=== PATIENT | male | born 1960 | race American Indian/Alaskan Native ===

== ENCOUNTER 2018-02-25 11:35 | Inpatient (IN) | payer MEDICARE, OTHER ==
--- NOTE | 2018-02-25 11:48 | Emergency Department Report ---
HPI - General Time Seen by Provider: 02/25/18 11:39 - HPI HPI: Charge nurse triage/ The patient is a 57-year-old male presenting with chief complaint left-sided weakness. The patient states he went to sleep last night between 18:00-19:00 in his usual state of health. The patient states he awakened this shortly after midnight and noticed he was unable to walk because he is unable to move his left upper extremity or left lower extremity. Patient denies numbness or dysarthria. Location: [See above] Duration: [See above] Quality: Weakness Severity: Severe Modifying factors: [see above] Context: [see above] Mode of transportation: [not driving] ED Review of Systems ROS: Stated complaint: POSS CVA Other details as noted in HPI Physical Exam - Physical Exam Physical Exam: GENERAL: The patient is well-developed well-nourished male lying on stretcher not appearing to be in acute distress. [] HEENT: Normocephalic. Atraumatic. Extraocular motions are intact. Patient has moist mucous membranes. NECK: Supple. Trachea midline CHEST/LUNGS: Clear to auscultation. There is no respiratory distress noted. HEART/CARDIOVASCULAR: Regular. There is no tachycardia. There is no gallop rub or murmur. ABDOMEN: Abdomen is soft, nontender. Patient has normal bowel sounds. There is no abdominal distention. SKIN: There is no rash. There is no edema. There is no diaphoresis. NEURO: The patient is awake, alert, and oriented. The patient is cooperative. Cranial nerves II through XII grossly intact with exception of cranial nerve #7 on the left. The patient has an asymmetric smile with drooping on the left. Patient is unable to raise left upper extremity or left lower extremity off the stretcher. [0/5+, right machine design engineer 5+/5+. Normal sensation throughout. The patient has normal speech MUSCULOSKELETAL: There is no evidence of acute injury. NIHSS= 7 LOC a. Alert= 0 Not alert but arousable to minor stimuli=1 Not alert requires repeated or strong stimuli to move= 2 Responds only reflex motor or unresponsive=3 b. asks month and age answers both correctly= 0 answers one correctly= 1 answers neither correctly= 2 Best Gaze normal= 0 abnormal in one or both but forced deviation or total paresis absent= 1 forced deviation or total gaze paresis= 2 Visual no visual loss= 0 partial hemianopia= 1 complete hemianopia= 2 bilateral hemianopia= 3 Facial Palsy normal= 0 minor paralysis= 1 (+)partial paralysis= 2 complete paralysis= 3 Motor Arm no drift= 0 drift before 10 secs but doesnt hit bed= 1 (+)some effort against gravity= 2 no effort against gravity= 3 no movement= 4 Motor leg no drift= 0 drift before 5 secs but doesnt hit bed= 1 drifts to bed before 5 secs= 2 (+)no effort against gravity= 3 no movement= 4 Limb ataxia absent=0 present in one limb= 1 present in two limbs= 2 Sensory normal= 0 mild sensory loss= 1 severe (unaware of being touched)= 2 Best language mild/some loss of fluency= 1 severe= 2 mute= 3 Dysarthria normal= 0 slurs some words= 1 severe/unintelligible= 2 Extinction and Inattention no abnormality= 0 visual, tactile, auditory or personal inattention= 1 profound (doesnt recognize own hand or orients to only one side= 2 ED Course - Reevaluation(s) Reevaluation #1: 02/25/18 12:45 Patient has improved dramatically and is able to move both left upper and lower extremity. Cranial nerves II through XII grossly intact, no drift. Left machine design engineer 4 +/5, right machine design engineer 5+/5, normal sensation throughout. Patient is able to hold each leg at 30 for 5 seconds count NIHSS= 1 LOC a. Alert= 0 Not alert but arousable to minor stimuli=1 Not alert requires repeated or strong stimuli to move= 2 Responds only reflex motor or unresponsive=3 b. asks month and age answers both correctly= 0 answers one correctly= 1 answers neither correctly= 2 Best Gaze normal= 0 abnormal in one or both but forced deviation or total paresis absent= 1 forced deviation or total gaze paresis= 2 Visual no visual loss= 0 partial hemianopia= 1 complete hemianopia= 2 bilateral hemianopia= 3 Facial Palsy normal= 0 minor paralysis= 1 partial paralysis= 2 complete paralysis= 3 Motor Arm no drift= 0 drift before 10 secs but doesnt hit bed= 1 some effort against gravity= 2 no effort against gravity= 3 no movement= 4 Motor leg no drift= 0 drift before 5 secs but doesnt hit bed= 1 drifts to bed before 5 secs= 2 no effort against gravity= 3 no movement= 4 Limb ataxia absent=0 present in one limb= 1 present in two limbs= 2 Sensory normal= 0 mild sensory loss= 1 severe (unaware of being touched)= 2 Best language mild/some loss of fluency= 1 severe= 2 mute= 3 Dysarthria normal= 0 slurs some words= 1 severe/unintelligible= 2 Extinction and Inattention no abnormality= 0 visual, tactile, auditory or personal inattention= 1 profound (doesnt recognize own hand or orients to only one side= 2 ED Medical Decision Making - Lab Data Result diagrams: 02/25/18 11:50 02/25/18 11:50 Laboratory Tests 02/25/18 02/25/18 02/25/18 11:50 11:50 11:50 WBC 6.6 RBC 4.85 Hgb 14.4 Hct 43.8 MCV 90 MCH 30 MCHC 33 RDW 15.7 H Plt Count 149 Lymph % (Auto) 18.1 [place] % (Auto) 10.8 H Eos % (Auto) 0.4 Baso % (Auto) 0.4 Lymph # 1.2 [place] # 0.7 Eos # 0.0 Baso # 0.0 Seg Neutrophils % 70.3 H Seg Neutrophils # 4.7 PT 12.6 INR 0.90 APTT 28.1 Thrombin Time 16.4 Sodium 138 Potassium 2.7 L* Chloride 93.2 L Carbon Dioxide 27 Anion Gap 21 BUN 12 Creatinine 0.8 Estimated GFR > 60 BUN/Creatinine Ratio 15 Glucose 86 Calcium 9.4 - EKG Data -: EKG Interpreted by Me EKG shows normal: sinus rhythm Rate: normal - EKG Data When compared to previous EKG there are: previous EKG unavailable Interpretation: nonspecific ST-T wave tripp - Radiology Data Radiology results: report reviewed (CT head), image reviewed (CT head) CT head (discussed with radiologist)-no acute findings. Old lacunar infarcts - Differential Diagnosis CVA Critical care attestation.: If time is entered above; I have spent that time in minutes in the direct care of this critically ill patient, excluding procedure time. ED Disposition Clinical Impression: CVA (cerebral vascular accident), Hypokalemia Disposition: -09 OP ADMIT IP TO THIS HOSP Is pt being admited?: Yes Does the pt Need Aspirin: Yes Condition: Stable Referrals: PRIMARY CARE,MD [Primary Care Provider] - 3-5 Days Time of Disposition: 12:47 (hospitals notified (Dr Montes))
--- NOTE | 2018-02-25 11:57 | Cat Scan Report ---
CT HEAD WITHOUT CONTRAST: 02/25/18 11:37:00 CLINICAL: 98N-STROKE ALERT. Left-sided weakness. TECHNIQUE: 2.5-mm noncontrast scans. COMPARISON:None FINDINGS: The ventricles and sulci are large for age.Several bilateral basal ganglia and thalamic chronic lacunar infarcts. The largest is a right thalamic hypodensity measuring 1.6 x 0.8 cm. A right basal ganglia infarct at the junction of the anterior and posterior lambs of the internal capsule measures 1.0 x 0.7 cm. A right frontal white matter lacunar infarct measures 1.1 x 0.8 cm. Moderate bilateral periventricular white matter hypodensities No mass or mass effect. No hemorrhage, edema or extra-axial collection. The sinuses are clear. Normal orbits. The calvarium and skull base are intact. There appears to be a linear high density scar in the left posterior parietal and occipital scalp and a similar smaller scar in the right parietal scalp at the convexity. IMPRESSION: Multiple bilateral basal ganglia and bilateral thalamic chronic lacunar infarcts. A right frontal lobe white matter chronic lacunar infarct. No evidence of acute/subacute infarct or hemorrhage. Verbal report was given to Dr. Rowe in the emergency department on 02/25/18 at 11:53.. 98N-STROKE ALERT
[2018-02-25] MEDS ORDERED: ASPIRIN PO ONE (11:58)
[2018-02-25 12:00] LABS: Basophils % (Auto) 0.4 % (0.0-1.8); Eosinophils % (Auto) 0.4 % (0.0-4.3); Hematocrit 43.8 % (35.5-45.6); Hemoglobin 14.4 gm/dl (11.8-15.2); Lymphocytes # (Auto) 1.2 K/mm3 (1.2-5.4); Lymphocytes % (Auto) 18.1 % (13.4-35.0); Mean Corpuscular HGB Conc 33 % (32-34); Mean Corpuscular Hemoglobin 30 pg (28-32); Mean Corpuscular Volume 90 fl (84-94); Monocytes # (Auto) 0.7 K/mm3 (0.0-0.8); Monocytes % (Auto) 10.8 % (0.0-7.3); Platelet Count 149 K/mm3 (140-440); Red Blood Count 4.85 M/mm3 (3.65-5.03); Red Cell Distribution Width 15.7 % (13.2-15.2)
[2018-02-25 12:10] LABS: INR 0.9 (0.87-1.13)
[2018-02-25 12:11] LABS: Partial Thromboplastin Time 28.1 Sec. (24.2-36.6); Thrombin Time 16.4 Sec. (15.1-19.6)
[2018-02-25 12:34] LABS: BUN/Creatinine Ratio 15; Blood Urea Nitrogen 12 mg/dL (9-20); Calcium 9.4 mg/dL (8.4-10.2); Hemolysis Index 6
[2018-02-25] MEDS ORDERED: K-DUR PO ONE (12:44)
--- NOTE | 2018-02-25 13:09 | History and Physical Report ---
History of Present Illness Chief complaint: Im weak History of present illness: 57 YO Male with NO PMH, without PCP presents to ED for evaluation. Pt is confused and unable to provide detailed history. Pt was last reported well at 1800 hours. Pt swoke shortly after midnight was was unable to walk and move his left arm and left leg. EMS was later notified, and upon arrival the patient was found to have evidence of CVA. Pt transported to [facility] for further care and evalualtion. Pt seen and evaluated in ED and found to have evidence of CVA as well as Encephalopathy. Pt unable to provide further history. Pt admitted to telemetry and initiated on CVA protocol. Past History Past Medical History: No medical history, other (reviewed) Past Surgical History: No surgical history, Other (reviewed) Social history: single, Lives alone. denies: smoking, alcohol abuse, prescription drug abuse Family history: hypertension Medications and Allergies Allergies Allergy/AdvReac Type Severity Reaction Status Date / Time No Known Allergies Allergy Verified 02/25/18 11:47 Review of Systems ROS unobtainable: due to mental status Exam - Constitutional General appearance: Present: mild distress - EENT Eyes: Present: PERRL ENT: hearing intact, clear oral mucosa - Neck Neck: Present: supple, normal ROM - Respiratory Respiratory effort: normal Respiratory: bilateral: CTA - Cardiovascular Heart Sounds: Present: S1 & S2. Absent: rub, click - Extremities Extremities: pulses symmetrical, No edema Peripheral Pulses: within normal limits - Abdominal General gastrointestinal: Present: soft, non-tender, non-distended, normal bowel sounds Male genitourinary: Present: normal - Integumentary Integumentary: Present: clear, warm, dry - Musculoskeletal Musculoskeletal: left sided weakness - Psychiatric Psychiatric: intact judgment & insight, no memory intact, agitated - Neurologic Neurologic: focal deficits, moves all extremities, no gait normal Results - Labs CBC & Chem 7: 02/25/18 11:50 02/25/18 11:50 Labs: Abnormal lab results 02/25/18 02/25/18 Range/Units 11:50 11:50 RDW 15.7 H (13.2-15.2) % [place] % (Auto) 10.8 H (0.0-7.3) % Seg Neutrophils % 70.3 H (40.0-70.0) % Potassium 2.7 L* (3.6-5.0) mmol/L Chloride 93.2 L (98-107) mmol/L Assessment and Plan - Patient Problems (1) CVA (cerebral vascular accident) Current Visit: Yes Status: Acute Qualifiers: Precerebral and cerebral artery: middle cerebral artery Laterality of affected vessel: left Plan to address problem: Stroke Protocol: CT head, MRI Brain, MRA Brain, Echo, Carotid doppler, DAPT, Statin therapy, EEG, Neuro checks, seizure precautions. (2) Encephalopathy Current Visit: Yes Status: Acute Plan to address problem: CT head, neuro checks, seizure precautions. (3) Accelerated hypertension Current Visit: Yes Status: Acute Plan to address problem: permissive hypertension overnight, supportive care. (4) DVT prophylaxis Current Visit: Yes Status: Acute Plan to address problem: SCD to BLE while in bed.
[2018-02-25] MEDS ORDERED: DULCOLAX PR PRN (13:40)
[2018-02-25] MEDS ORDERED: ZOFRAN IV PRN (13:40)
[2018-02-25] MEDS ORDERED: SODIUM CHLORIDE FLUSH SYRINGE 10 ML IV PRN (13:40)
[2018-02-25] MEDS ORDERED: MILK OF MAGNESIA PO PRN (13:40)
[2018-02-25] MEDS ORDERED: PHENERGAN PR PRN (13:40)
[2018-02-25] MEDS ORDERED: REGLAN PO PRN (13:40)
[2018-02-25] MEDS ORDERED: PROVENTIL IH PRN (13:40)
[2018-02-25] MEDS: PLAVIX PO SCH (14:50)
[2018-02-25] MEDS ORDERED: PLAVIX ONE (14:53)
--- NOTE | 2018-02-25 16:37 | Magnetic Resonance Report ---
FINAL REPORT EXAM: MR MRA/MRV HEAD WO CON HISTORY: stroke TECHNIQUE: MRA of the brain was performed without intravenous contrast. Rotating MIPS were included. PRIORS: None. FINDINGS: No evidence of intracranial aneurysm, vessel occlusion or stenosis. The right posterior communicating artery is either very small or absent. The remainder of the [place] anatomy is normal. The anterior cerebral, posterior cerebral and middle cerebral arteries are patent. The intracranial internal carotid arteries are patent. The vertebral and basilar arteries are patent. IMPRESSION: Normal MRA of the brain.
--- NOTE | 2018-02-25 16:41 | Magnetic Resonance Report ---
FINAL REPORT EXAM: MR BRAIN WO CON HISTORY: stroke TECHNIQUE: Multiplanar, multisequence MRI of the brain was performed without intravenous contrast. PRIORS: None. FINDINGS: There is a focus of restricted diffusion within the right aspect of the haroldo. No intracranial mass or mass effect. No intracranial hemorrhage. The intracranial flow voids are patent. The ventricles are normal in size, shape and position. The basilar cisterns are patent. Multifocal confluent areas of T2 FLAIR hyperintensity are seen in the periventricular and subcortical white matter. Some of the lesions demonstrate central cavitation. Mild mucosal thickening of the paranasal sinuses is likely congestive or inflammatory. The orbits are intact. Probable prior left posterior scalp laceration. IMPRESSION: 1. Recent right pontine infarct. 2. White matter findings are nonspecific in a patient this age although may be related to a knee violating or inflammatory process versus chronic microvascular ischemic disease. 3. Paranasal sinus mucosal thickening is likely congestive or inflammatory. Findings were discussed with ARETHA Braden at 1:31 p.m. PST on 02/25/2018.
[2018-02-25] MEDS: TYLENOL PO PRN ×2 (17:35→21:21)
[2018-02-25] MEDS ORDERED: PRAVACHOL PO SCH (22:00)
[2018-02-26 05:37] LABS: Chol/HDL Ratio 2.7 %
[2018-02-26] MEDS ORDERED: PRAVACHOL PO SCH ×2 (11:42→22:00)
[2018-02-26] MEDS ORDERED: K-DUR PO NR ×2 (11:43→15:00)
--- NOTE | 2018-02-26 11:44 | Progress Note ---
Assessment and Plan Assessment and plan: Acute CVA. MRI reveals recent right pontine infarct. MRA and carotid Doppler negative. Consider neurology consultation. Continue PT/OT. Continue secondary prevention with anti-lipids and aspirin/plavix. Follow-up echocardiogram and EEG. Encephalopathy. Etiology secondary to #1. Resolved. Hypokalemia. Replete potassium. Accelerated hypertension. Continue hypertensive medications. DVT prophylaxis. Lovenox daily. History Interval history: No new issues overnight. Hospitalist Physical - Constitutional Vitals: Temp Pulse Resp BP Pulse Ox 98.5 F 71 16 145/90 94 02/26/18 07:49 02/26/18 07:49 02/26/18 07:49 02/26/18 07:49 02/26/18 07:49 General appearance: Present: no acute distress - EENT Eyes: Present: PERRL, EOM intact ENT: hearing intact, clear oral mucosa, dentition normal - Neck Neck: Present: supple, normal ROM - Respiratory Respiratory effort: normal Respiratory: bilateral: CTA - Cardiovascular Rhythm: regular Heart Sounds: Present: S1 & S2. Absent: gallop, rub - Extremities Extremities: no ischemia, No edema, Full ROM - Abdominal General gastrointestinal: soft, non-tender, non-distended, normal bowel sounds - Integumentary Integumentary: Present: clear, warm, dry - Neurologic Neurologic: CNII-XII intact, moves all extremities Results - Labs CBC & Chem 7: 02/25/18 11:50 02/25/18 11:50 Labs: Laboratory Last Values WBC 6.6 K/mm3 (4.5-11.0) 02/25/18 11:50 RBC 4.85 M/mm3 (3.65-5.03) 02/25/18 11:50 Hgb 14.4 gm/dl (11.8-15.2) 02/25/18 11:50 Hct 43.8 % (35.5-45.6) 02/25/18 11:50 MCV 90 fl (84-94) 02/25/18 11:50 MCH 30 pg (28-32) 02/25/18 11:50 MCHC 33 % (32-34) 02/25/18 11:50 RDW 15.7 % (13.2-15.2) H 02/25/18 11:50 Plt Count 149 K/mm3 (140-440) 02/25/18 11:50 Lymph % (Auto) 18.1 % (13.4-35.0) 02/25/18 11:50 [place] % (Auto) 10.8 % (0.0-7.3) H 02/25/18 11:50 Eos % (Auto) 0.4 % (0.0-4.3) 02/25/18 11:50 Baso % (Auto) 0.4 % (0.0-1.8) 02/25/18 11:50 Lymph # 1.2 K/mm3 (1.2-5.4) 02/25/18 11:50 [place] # 0.7 K/mm3 (0.0-0.8) 02/25/18 11:50 Eos # 0.0 K/mm3 (0.0-0.4) 02/25/18 11:50 Baso # 0.0 K/mm3 (0.0-0.1) 02/25/18 11:50 Seg Neutrophils % 70.3 % (40.0-70.0) H 02/25/18 11:50 Seg Neutrophils # 4.7 K/mm3 (1.8-7.7) 02/25/18 11:50 PT 12.6 Sec. (12.2-14.9) 02/25/18 11:50 INR 0.90 (0.87-1.13) 02/25/18 11:50 APTT 28.1 Sec. (24.2-36.6) 02/25/18 11:50 Thrombin Time 16.4 Sec. (15.1-19.6) 02/25/18 11:50 Sodium 138 mmol/L (137-145) 02/25/18 11:50 Potassium 2.7 mmol/L (3.6-5.0) L* 02/25/18 11:50 Chloride 93.2 mmol/L (98-107) L 02/25/18 11:50 Carbon Dioxide 27 mmol/L (22-30) 02/25/18 11:50 Anion Gap 21 mmol/L 02/25/18 11:50 BUN 12 mg/dL (9-20) 02/25/18 11:50 Creatinine 0.8 mg/dL (0.8-1.5) 02/25/18 11:50 Estimated GFR > 60 ml/min 02/25/18 11:50 BUN/Creatinine Ratio 15 % 02/25/18 11:50 Glucose 86 mg/dL (75-100) 02/25/18 11:50 POC Glucose 113 (70-105) H 02/26/18 07:33 Calcium 9.4 mg/dL (8.4-10.2) 02/25/18 11:50 Triglycerides 84 mg/dL (2-149) 02/26/18 04:28 Cholesterol 181 mg/dL (50-199) 02/26/18 04:28 LDL Cholesterol Direct 106 mg/dL (50-130) 02/26/18 04:28 HDL Cholesterol 67 mg/dL (40-59) H 02/26/18 04:28 Cholesterol/HDL Ratio 2.70 % 02/26/18 04:28
[2018-02-26] MEDS: PLAVIX PO SCH (12:30)
[2018-02-26] MEDS: TYLENOL PO PRN ×2 (15:08→23:36)
[2018-02-27] MEDS ORDERED: APRESOLINE IV PRN (04:21)
[2018-02-27] MEDS: PLAVIX PO SCH (09:26)
--- NOTE | 2018-02-27 09:45 | Progress Note ---
Assessment and Plan Assessment and plan: Acute CVA. Pt reports LUE weakness is worse. ? Evolving CVA. Neurology consultation. Consider rechecking CT head. Await neurology recommendations MRI reveals recent right pontine infarct. MRA and carotid Doppler negative. Continue PT/OT. Continue secondary prevention with anti-lipids and aspirin/ plavix. Follow-up echocardiogram and EEG. Accelerated HTN. Pt initially with permissive htn. We will now start labetalol BID. Encephalopathy. Etiology secondary to #1. Resolved. Hypokalemia. Replete potassium. Accelerated hypertension. Continue hypertensive medications. DVT prophylaxis. Lovenox daily. Disposition. Re-eval by physical therapy I d/w sister Mercedez Hauser ([phone]) updated plan of care and answered all questions History Interval history: Nurse and pt reports that Left upper extremity weakness appears to be worse today. Hospitalist Physical - Constitutional Vitals: Temp Pulse Resp BP Pulse Ox 97.5 F L 74 19 168/95 95 02/27/18 08:17 02/27/18 08:17 02/27/18 08:17 02/27/18 08:17 02/27/18 08:17 General appearance: Present: no acute distress - EENT Eyes: Present: PERRL, EOM intact ENT: hearing intact, clear oral mucosa, dentition normal - Neck Neck: Present: supple, normal ROM - Respiratory Respiratory effort: normal Respiratory: bilateral: CTA - Cardiovascular Rhythm: regular Heart Sounds: Present: S1 & S2. Absent: gallop, rub - Extremities Extremities: no ischemia, No edema, Full ROM - Abdominal General gastrointestinal: soft, non-tender, non-distended, normal bowel sounds - Integumentary Integumentary: Present: clear, warm, dry - Neurologic Neurologic: CNII-XII intact, moves all extremities Results - Labs CBC & Chem 7: 02/25/18 11:50 02/25/18 11:50 Labs: Laboratory Last Values WBC 6.6 K/mm3 (4.5-11.0) 02/25/18 11:50 RBC 4.85 M/mm3 (3.65-5.03) 02/25/18 11:50 Hgb 14.4 gm/dl (11.8-15.2) 02/25/18 11:50 Hct 43.8 % (35.5-45.6) 02/25/18 11:50 MCV 90 fl (84-94) 02/25/18 11:50 MCH 30 pg (28-32) 02/25/18 11:50 MCHC 33 % (32-34) 02/25/18 11:50 RDW 15.7 % (13.2-15.2) H 02/25/18 11:50 Plt Count 149 K/mm3 (140-440) 02/25/18 11:50 Lymph % (Auto) 18.1 % (13.4-35.0) 02/25/18 11:50 [place] % (Auto) 10.8 % (0.0-7.3) H 02/25/18 11:50 Eos % (Auto) 0.4 % (0.0-4.3) 02/25/18 11:50 Baso % (Auto) 0.4 % (0.0-1.8) 02/25/18 11:50 Lymph # 1.2 K/mm3 (1.2-5.4) 02/25/18 11:50 [place] # 0.7 K/mm3 (0.0-0.8) 02/25/18 11:50 Eos # 0.0 K/mm3 (0.0-0.4) 02/25/18 11:50 Baso # 0.0 K/mm3 (0.0-0.1) 02/25/18 11:50 Seg Neutrophils % 70.3 % (40.0-70.0) H 02/25/18 11:50 Seg Neutrophils # 4.7 K/mm3 (1.8-7.7) 02/25/18 11:50 PT 12.6 Sec. (12.2-14.9) 02/25/18 11:50 INR 0.90 (0.87-1.13) 02/25/18 11:50 APTT 28.1 Sec. (24.2-36.6) 02/25/18 11:50 Thrombin Time 16.4 Sec. (15.1-19.6) 02/25/18 11:50 Sodium 138 mmol/L (137-145) 02/25/18 11:50 Potassium 2.7 mmol/L (3.6-5.0) L* 02/25/18 11:50 Chloride 93.2 mmol/L (98-107) L 02/25/18 11:50 Carbon Dioxide 27 mmol/L (22-30) 02/25/18 11:50 Anion Gap 21 mmol/L 02/25/18 11:50 BUN 12 mg/dL (9-20) 02/25/18 11:50 Creatinine 0.8 mg/dL (0.8-1.5) 02/25/18 11:50 Estimated GFR > 60 ml/min 02/25/18 11:50 BUN/Creatinine Ratio 15 % 02/25/18 11:50 Glucose 86 mg/dL (75-100) 02/25/18 11:50 POC Glucose 113 (70-105) H 02/26/18 07:33 Calcium 9.4 mg/dL (8.4-10.2) 02/25/18 11:50 Triglycerides 84 mg/dL (2-149) 02/26/18 04:28 Cholesterol 181 mg/dL (50-199) 02/26/18 04:28 LDL Cholesterol Direct 106 mg/dL (50-130) 02/26/18 04:28 HDL Cholesterol 67 mg/dL (40-59) H 02/26/18 04:28 Cholesterol/HDL Ratio 2.70 % 02/26/18 04:28
--- NOTE | 2018-02-27 14:34 | Cat Scan Report ---
CT HEAD WITHOUT CONTRAST: HISTORY: Fall, left arm weakness worse. TECHNIQUE: Sequential CT images without contrast. FINDINGS: Compared to 02/25/18. Nonspecific chronic white matter changes are stable. Focal chronic infarcts in the right frontal white matter, genu of the right internal capsule, bilateral thalami, and bilateral haroldo appear unchanged since the previous exam. No new area of diminished attenuation is identified on noncontrast CT to suggest acute ischemia. No evidence for hemorrhage or extra-axial fluid collection. Ventricular size is within normal limits. The calvarium is intact. The visualized sinuses and mastoid air cells are clear. IMPRESSION: Chronic findings as described above which are unchanged since 02/25/18.
[2018-02-27] MEDS: TYLENOL PO PRN ×2 (15:51→22:47)
[2018-02-27] MEDS: NORMODYNE PO SCH (22:48)
--- NOTE | 2018-02-28 08:25 | Consultation ---
History of Present Illness Consult date: 02/28/18 History of present illness: spoke with the nurse while on rounds slightly increased weakness noted on the left side at present time suspect progression of stroke will assess the BP make further rec's plan to check imaging studies Past History Past Medical History: No medical history, other (reviewed) Past Surgical History: No surgical history, Other (reviewed) Social history: single, Lives alone. denies: smoking, alcohol abuse, prescription drug abuse Family history: hypertension Medications and Allergies Allergies Allergy/AdvReac Type Severity Reaction Status Date / Time No Known Allergies Allergy Verified 02/25/18 11:47 Home Medications Medication Instructions Recorded Confirmed Last Taken Type No Known Home Medications [No 02/26/18 02/26/18 Unknown History Reported Home Medications] Active Meds: Active Medications Acetaminophen (Tylenol) 650 mg PO Q4H PRN PRN Reason: Pain, Mild (1-3) Last Admin: 02/27/18 22:47 Dose: 650 mg Albuterol (Proventil) 2.5 mg IH Q3HRT PRN PRN Reason: Shortness Of Breath Atorvastatin Calcium (Lipitor) 40 mg PO QHS [facility] Last Admin: 02/27/18 22:48 Dose: 40 mg Bisacodyl (Dulcolax) 10 mg [place] QDAY PRN PRN Reason: Constipation Clopidogrel Bisulfate (Plavix) 75 mg PO QDAY [facility] Last Admin: 02/27/18 09:26 Dose: 75 mg Hydralazine HCl (Apresoline) 5 mg IV Q6H PRN PRN Reason: Blood Pressure Last Admin: 02/27/18 05:11 Dose: 5 mg Labetalol HCl (Normodyne) 200 mg PO BID [facility] Last Admin: 02/27/18 22:48 Dose: 200 mg Magnesium Hydroxide (Milk Of Magnesia) 30 ml PO Q4H PRN PRN Reason: Constipation Metoclopramide HCl (Reglan) 10 mg PO Q6H PRN PRN Reason: Nausea And Vomiting Ondansetron HCl (Zofran) 4 mg IV Q8H PRN PRN Reason: N/V unrelieved by Reglan Promethazine HCl (Phenergan) 25 mg [place] Q6H PRN PRN Reason: Nausea And Vomiting Sodium Chloride (Sodium Chloride Flush Syringe 10 Ml) 10 ml IV PRN PRN PRN Reason: LINE FLUSH Physical Examination - Vital Signs Vital Signs: Vital Signs Pulse Ox 96 02/25/18 11:50 - Level of Consciousness 1a. Level of Consciousness: alert - LOC Questions 1b. LOC Questions: answers correctly - LOC Command 1c. LOC Commands: performs tasks correctly - Best Gaze 2. Best Gaze: normal - Visual 3. Visual: no visual loss - Facial Palsy 4. Facial Palsy: normal symmetrical movement - Motor Arm 5b. Motor Arm Right: no drift - Motor Leg 6a. Motor Leg Left: drift - Limb Ataxia 7. Limb Ataxia: absent - Sensory 8. Sensory: normal - Best Language 9. Best Language: no aphasia - Dysarthria 10. Dysarthria: normal - Extinction and Inattention 11. Extinction/Inattention: no abnormality Results - Laboratory Findings CBC and BMP: 02/25/18 11:50 02/25/18 11:50 Abnormal Lab Findings: Abnormal Labs 02/25/18 02/25/18 02/26/18 11:50 11:50 04:28 RDW 15.7 H [place] % (Auto) 10.8 H Seg Neutrophils % 70.3 H Potassium 2.7 L* Chloride 93.2 L POC Glucose HDL Cholesterol 67 H 02/26/18 07:33 RDW [place] % (Auto) Seg Neutrophils % Potassium Chloride POC Glucose 113 H HDL Cholesterol
[2018-02-28 10:17] LABS: BUN/Creatinine Ratio 19; Blood Urea Nitrogen 13 mg/dL (9-20); Calcium 8.9 mg/dL (8.4-10.2); Hemolysis Index 2
[2018-02-28] MEDS: PLAVIX PO SCH (14:59)
[2018-02-28] MEDS: NORMODYNE PO SCH ×2 (14:59→21:31)
--- NOTE | 2018-02-28 18:23 | Progress Note ---
Assessment and Plan Assessment and plan: Mr. Kenyon is a 57 yo man without chronic medical issues who presented with left side paralysis, no tpa given because ?last known well time. * CT head w/o IMPRESSION: Multiple bilateral basal ganglia and bilateral thalamic chronic lacunar infarcts. A right frontal lobe white matter chronic lacunar infarct. No evidence of acute/subacute infarct or hemorrhage. * MRI brain w/o contrast IMPRESSION: 1. Recent right pontine infarct. 2. White matter findings are nonspecific in a patient this age although may be related to a knee violating or inflammatory process versus chronic microvascular ischemic disease. 3. Paranasal sinus mucosal thickening is likely congestive or inflammatory. * MRA brain w/o contrast reported as normal * 2D ECHO reported estimated EF 50%, moderate concentric hypertrophy, trace MR * Carotid dopplers prelim was unremarkable, <50% stenosis -Acute ischemic CVA. -Accelerated HTN with urgency. Pt initially with permissive htn. We will now start labetalol BID. -Acute Encephalopathy. Etiology secondary to #1. Resolved. -Hypokalemia. Replete potassium. -Accelerated hypertension. Continue hypertensive medications. -DVT prophylaxis. Lovenox daily. -Disposition. Re-eval by physical therapy History Interval history: Patient was seen and examined. Follow-up on current diagnosis. Overnight uneventful. Patient denies any chest pain, shortness breath, nausea/vomiting or severe headaches. Imaging, nursing note, chart, labs and old chart reviewed. Discussed with patient. Hospitalist Physical - Physical exam Narrative exam: GEN: WDWN, NAD, Awake, Alert, Orientated HEENT: NCAT, EOMI, PERRL, OP Clear NECK: supple, no adenopathy, no thyromegaly, no JVD CVS/HEART: RRR, normal S1S2, pulses present bilaterally CHEST/LUNGS: CTA B, Symmetrical chest expansion, good air entry bilaterally GI/Abdomen: soft, NTND, good bowel sounds, no guarding or rebound /Bladder: no suprapubic tenderness, no CVA or paraspinal tenderness EXT/Skin: no c/c/e, no obvious rash MSK: FROM x 3 Neuro: CN 2-12 grossly intact, no new focal deficits, left hemiparesis Psych: calm - Constitutional Vitals: Temp Pulse Resp BP Pulse Ox 98.0 F 63 18 180/85 98 02/28/18 16:31 02/28/18 16:31 02/28/18 16:31 02/28/18 16:31 02/28/18 16:31 General appearance: Present: no acute distress Results - Labs CBC & Chem 7: 03/01/18 05:07 03/01/18 05:07 Labs: Laboratory Last Values WBC 6.6 K/mm3 (4.5-11.0) 02/25/18 11:50 RBC 4.85 M/mm3 (3.65-5.03) 02/25/18 11:50 Hgb 14.4 gm/dl (11.8-15.2) 02/25/18 11:50 Hct 43.8 % (35.5-45.6) 02/25/18 11:50 MCV 90 fl (84-94) 02/25/18 11:50 MCH 30 pg (28-32) 02/25/18 11:50 MCHC 33 % (32-34) 02/25/18 11:50 RDW 15.7 % (13.2-15.2) H 02/25/18 11:50 Plt Count 149 K/mm3 (140-440) 02/25/18 11:50 Lymph % (Auto) 18.1 % (13.4-35.0) 02/25/18 11:50 Coffey % (Auto) 10.8 % (0.0-7.3) H 02/25/18 11:50 Eos % (Auto) 0.4 % (0.0-4.3) 02/25/18 11:50 Baso % (Auto) 0.4 % (0.0-1.8) 02/25/18 11:50 Lymph # 1.2 K/mm3 (1.2-5.4) 02/25/18 11:50 Coffey # 0.7 K/mm3 (0.0-0.8) 02/25/18 11:50 Eos # 0.0 K/mm3 (0.0-0.4) 02/25/18 11:50 Baso # 0.0 K/mm3 (0.0-0.1) 02/25/18 11:50 Seg Neutrophils % 70.3 % (40.0-70.0) H 02/25/18 11:50 Seg Neutrophils # 4.7 K/mm3 (1.8-7.7) 02/25/18 11:50 PT 12.6 Sec. (12.2-14.9) 02/25/18 11:50 INR 0.90 (0.87-1.13) 02/25/18 11:50 APTT 28.1 Sec. (24.2-36.6) 02/25/18 11:50 Thrombin Time 16.4 Sec. (15.1-19.6) 02/25/18 11:50 Sodium 140 mmol/L (137-145) 02/28/18 09:36 Potassium 3.5 mmol/L (3.6-5.0) L D 02/28/18 09:36 Chloride 99.8 mmol/L (98-107) 02/28/18 09:36 Carbon Dioxide 29 mmol/L (22-30) 02/28/18 09:36 Anion Gap 15 mmol/L 02/28/18 09:36 BUN 13 mg/dL (9-20) 02/28/18 09:36 Creatinine 0.7 mg/dL (0.8-1.5) L 02/28/18 09:36 Estimated GFR > 60 ml/min 02/28/18 09:36 BUN/Creatinine Ratio 19 % 02/28/18 09:36 Glucose 176 mg/dL (75-100) H 02/28/18 09:36 POC Glucose 113 (70-105) H 02/26/18 07:33 Calcium 8.9 mg/dL (8.4-10.2) 02/28/18 09:36 Triglycerides 84 mg/dL (2-149) 02/26/18 04:28 Cholesterol 181 mg/dL (50-199) 02/26/18 04:28 LDL Cholesterol Direct 106 mg/dL (50-130) 02/26/18 04:28 HDL Cholesterol 67 mg/dL (40-59) H 02/26/18 04:28 Cholesterol/HDL Ratio 2.70 % 02/26/18 04:28
[2018-02-28] MEDS ORDERED: K-DUR PO NR (18:30)
[2018-02-28] MEDS: TYLENOL PO PRN (19:59)
[2018-03-01 06:50] LABS: BUN/Creatinine Ratio 16; Blood Urea Nitrogen 13 mg/dL (9-20); Calcium 8.8 mg/dL (8.4-10.2); Hemolysis Index 4
[2018-03-01 07:41] LABS: Hematocrit 39.3 % (35.5-45.6); Hemoglobin 12.9 gm/dl (11.8-15.2); Mean Corpuscular HGB Conc 33 % (32-34); Mean Corpuscular Hemoglobin 30 pg (28-32); Mean Corpuscular Volume 91 fl (84-94); Red Blood Count 4.33 M/mm3 (3.65-5.03)
[2018-03-01 07:42] LABS: Mean Platelet Volume 9.6 fl (6-12); Platelet Count 183 K/mm3 (140-440); Red Cell Distribution Width 15.7 % (13.2-15.2)
[2018-03-01] MEDS: PLAVIX PO SCH (10:10)
[2018-03-01] MEDS: NORMODYNE PO SCH (10:10)
[2018-03-01 10:11] VITALS: BP 160/80
--- NOTE | 2018-03-01 10:49 | Progress Note ---
Subjective Date of service: 03/01/18 Interval history: see my prior note as relates to etiology of stroke recommend medical therapy for stroke risk reduction continue same management stroke related neuro status is stable may either go home for rehab or rehab center at [facility] Objective - Vital Sign Vital Signs - 12hr 02/28/18 03/01/18 03/01/18 23:47 05:10 07:43 Temperature 97.8 F 97.6 F 97.9 F Pulse Rate 51 L 54 L 47 L Respiratory 18 18 20 Rate Blood Pressure 155/80 165/81 181/94 O2 Sat by Pulse 96 100 97 Oximetry 03/01/18 10:10 Temperature Pulse Rate 56 L Respiratory Rate Blood Pressure 160/80 O2 Sat by Pulse Oximetry - Laboratory Findings CBC and BMP: 03/01/18 05:07 03/01/18 05:07 Abnormal Lab Findings: Abnormal Labs 02/25/18 02/25/18 02/26/18 11:50 11:50 04:28 RDW 15.7 H Cooper % (Auto) 10.8 H Seg Neutrophils % 70.3 H Potassium 2.7 L* Chloride 93.2 L Creatinine Glucose POC Glucose HDL Cholesterol 67 H 02/26/18 02/28/18 03/01/18 07:33 09:36 05:07 RDW 15.7 H Cooper % (Auto) Seg Neutrophils % Potassium 3.5 L D Chloride Creatinine 0.7 L Glucose 176 H POC Glucose 113 H HDL Cholesterol 03/01/18 05:07 RDW Cooper % (Auto) Seg Neutrophils % Potassium 3.2 L Chloride Creatinine Glucose 104 H POC Glucose HDL Cholesterol
--- NOTE | 2018-03-01 13:06 | Consultation ---
HISTORY OF PRESENT ILLNESS: This is a 57-year-old black male that presented with a chief complaint to the Emergency Room with left-sided weakness. Apparently gone to sleep the prior evening and when he awoke, he was noted to have inability to move the left arm and left leg. He initially presented to the hospital. He had marked weakness of his left arm and the patient had no movement of the left arm at all and was demonstrably weak. His PT showed 16.4 on the prothrombin time. His EKG showed sinus rhythm. CT scan of the head showed multiple old lacunar infarcts. The patient was noted to have hypokalemia and acute stroke. By the patient's history, he has not had this problem previously. He denied a prior history of similar problem. I did review over his MRI scan and he has a pontine infarct on the right side, responsible for this problem and he has a dense but also has in addition a small lacunar infarct in the right hemisphere. Examination shows dense weakness of the left arm only and this is an interestingly correlated with 2 lesions in the motor system, one being in the haroldo, which is all across the midline and into the base of the haroldo, which clearly could cause the arm weakness, but interestingly, he has a second lesion in the hemisphere in the deep white matter. This would probably have an additive effect intensifying his weakness. What is interesting is he does not have denial of hemiplegia. He is quite aware of his neuro deficits, which to me at least indicates from a neurocognitive point of view that the lesion in the haroldo is the responsible ____ his weakness. 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 He does not have any neglect. He does not have any visual field cut. Therefore, appropriately the pontine ischemic lesion is probably responsible issue, treatment for this is low dose aspirin and statin and blood pressure management. I did advise the patient to take at rehabilitation for this. Typically strokes within the haroldo have a fairly reasonable recovery. I did reassure the patient about this as to the course of his further treatment and therapy. IMPRESSION: Stroke showing 2 lesions in the motor system, first being in the deep white matter of the right hemisphere, the second lesion which is probably the more pertinent lesion ____ the haroldo midline, which is a small penetrating vessel off the basilar. There is no evidence to indicate that he has Cronin's or occlusive disease and in fact, on review of the MRI scan is normal, which is typical for pontine penetrating vessel ischemia. [facility]# [id number] PETR/ADE
--- NOTE | 2018-03-01 13:54 | Discharge Summary ---
Providers - Providers Date of Admission: 02/25/18 13:40 Date of discharge: 03/01/18 Attending physician: LAURA MATHIAS 02/25/18 13:40 Occupational Therapy Evaluate and Treat [CONS] Routine Comment: Reason For Exam: Neuro deficits Physical Therapy Evaluation and Treat [CONS] Routine Comment: Reason For Exam: Neuro deficits 02/27/18 09:46 Physical Therapy Evaluation and Treat [CONS] Routine Comment: Reason For Exam: pt reports more weakness than previous 02/27/18 09:47 Consult to Physician [CONS] Routine Comment: Consulting Provider: FLAQUITA HAYES Physician Instructions: Reason For Exam: CVA, more LUE weakness than previous Primary care physician: DIESEL ROLLER OPERATOR Hospitalization Condition: Stable Hospital course: Mr. Kenyon is a 57 yo man without chronic medical issues who presented with left side paralysis, no tpa given because ?last known well time. * CT head w/o IMPRESSION: Multiple bilateral basal ganglia and bilateral thalamic chronic lacunar infarcts. A right frontal lobe white matter chronic lacunar infarct. No evidence of acute/subacute infarct or hemorrhage. * MRI brain w/o contrast IMPRESSION: 1. Recent right pontine infarct. 2. White matter findings are nonspecific in a patient this age although may be related to a knee violating or inflammatory process versus chronic microvascular ischemic disease. 3. Paranasal sinus mucosal thickening is likely congestive or inflammatory. * MRA brain w/o contrast reported as normal * 2D ECHO reported estimated EF 50%, moderate concentric hypertrophy, trace MR * Carotid dopplers prelim was unremarkable, <50% stenosis -Acute ischemic CVA. -Accelerated HTN with urgency. Pt initially with permissive htn. We will now start labetalol BID. -Acute Encephalopathy. Etiology secondary to #1. Resolved. -Hypokalemia. Replete potassium. -DVT prophylaxis. Lovenox daily. -Disposition. Re-eval by physical therapy Unable to go to rehab due to no insurance, [facility] services to be arranged by sub plant manager. d/w Sister Mercedez Hauser. Pt lives alone but his Nephrew Sohail will take care of him. So, will d/c home Disposition: DC/[place]-06 HOME UNDER HOME HL Time spent for discharge: 34 minutes Core Measure Documentation - Palliative Care Palliative Care/ Comfort Measures: Not Applicable - Core Measures Any of the following diagnoses?: stroke - VTE Discharge Requirements Deep Vein Thrombosis/Pulmonary Embolism Present on Admission: No Has pt received <5 days of overlap therapy or INR<2.0: No Anticoagulant overlap therapy prescribed at discharge: No Contraindication No Overlap Therapy order at DC: Not Indicated - Stroke Discharge Requirements Statin for LDL = or >70 mg/dl on DC: Yes Anticoag for atrial fib/atrial flutter: Not Applicable Antithrombotic for ischemic stroke: Yes Exam - Physical Exam Narrative exam: GEN: WDWN, NAD, Awake, Alert, Orientated HEENT: NCAT, EOMI, PERRL, OP Clear NECK: supple, no adenopathy, no thyromegaly, no JVD CVS/HEART: RRR, normal S1S2, pulses present bilaterally CHEST/LUNGS: CTA B, Symmetrical chest expansion, good air entry bilaterally GI/Abdomen: soft, NTND, good bowel sounds, no guarding or rebound /Bladder: no suprapubic tenderness, no CVA or paraspinal tenderness EXT/Skin: no c/c/e, no obvious rash MSK: FROM x 3 Neuro: CN 2-12 grossly intact, no new focal deficits, left hemiparesis Psych: calm - Constitutional Vitals: Temp Pulse Resp BP Pulse Ox 97.9 F 56 L 18 160/80 97 03/01/18 07:43 03/01/18 10:10 03/01/18 10:00 03/01/18 10:10 03/01/18 07:43 Plan Activity: up only with assistance, fall precautions, other (no strenous activities) Diet: low salt Additional Instructions: If you can not afford Plavix then use over the counter Aspirin 325mg daily instead Follow up with: VIKKI LANE MD [Primary Care Provider] - 3-5 Days FLAQUITA HAYES MD [Staff Physician] - 7 Days Prescriptions: AtorvaSTATin [Lipitor] 40 mg PO QHS #30 tablet Clopidogrel [Plavix] 75 mg PO QDAY #30 tablet Labetalol [Normodyne TAB] 200 mg PO BID #60 tablet
--- NOTE | 2018-03-03 12:16 | Vascular Lab Report ---
CAROTID DUPLEX STUDY: RIGHT PSVEDV CCA [id number] CCA DIST:[id number] ICA PROX:7424 ICA MID:7528 ICA DIST:7325 ECA: 129 VERT: 48 14 LEFT PSVEDV CCA PROX:[id number] CCA DIST:7021 ICA PROX:6023 ICA MID:6624 ICA DIST:5921 ECA: 89 VERT: 60 14 REASON FOR EXAM: Stroke. COMMENTS ON THE RIGHT: Doppler frequency analysis is consistent with 16 to 49 percent diameter reduction of the internal carotid artery. Minimal amount of plaque is seen. The common carotid artery is patent. The external carotid artery is patent. The vertebral artery has antegrade flow. COMMENTS ON THE LEFT: Doppler frequency analysis is consistent with 16 to 49 percent diameter reduction of the internal carotid artery. Minimal amount of plaque is seen. The common carotid artery is patent. The external carotid artery is patent. The vertebral artery has antegrade flow. IMPRESSION: Less than 50% diameter reduction in the internal carotid arteries bilaterally.
== END 2018-03-01 16:45 | disposition home or self-care (01) | DRG 64 ==
LOC: ED 11:37 → 4A 13:40
PROVIDERS: ADMIT Internal Medicine; ATTEND Internal Medicine
DX: I63.9 Cerebral infarction, unspecified (principal); G93.40 Encephalopathy, unspecified; G81.91 Hemiplegia, unspecified affecting right dominant side; E87.6 Hypokalemia; I10 Essential (primary) hypertension; I16.0 Hypertensive urgency; Z60.2 Problems related to living alone; Z82.49 Family history of ischemic heart disease and other diseases of the circulatory system
CPT/HCPCS: 36415; 70450; 70544; 70551; 80048; 80061; 82962; 85025; 85027; 85610; 85670; 85730; 93005; 93010; 93306; 93880; 95819; 99406; A9270-GY; J0360

== ENCOUNTER 2018-03-01 19:42 | Emergency (ER) | payer SELFPAY ==
--- NOTE | 2018-03-01 20:09 | Emergency Department Report ---
HPI - General Chief Complaint: Medical Clearance Time Seen by Provider: 03/01/18 19:51 - HPI HPI: This is a 57 year-old male who returns to the emergency department via transportation just after being discharged earlier today after having an acute stroke. The patient presented on 02/25 with left-sided weakness worst in the upper extremity. He was found to have a right pontine infarct. The patient had an MRI, MRA and continued evaluation and treatment until discharge this morning. The plan was for the patient to go to his daughter's residence where she would attempt to take care of him. However there were too many stairs and the patient was unable to manage this with his left-sided deficits. He attempted to get up and fell. He denies hitting his head, and he also consciousness or any new symptoms. The patient lives alone in an apartment but also does not feel that he is going to be able to do any of his ADLs living by himself. For these reasons, he was brought back to the emergency department. ED Past Medical Hx - Past Medical History Hx Hypertension: Yes Hx CVA: Yes (Thi past Tuesday w/ left sided deficits) Hx Congestive Heart Failure: No Hx Diabetes: No Hx COPD: No Hx HIV: No - Social History Smoking Status: Current Every Day Smoker - Medications Home Medications: Home Medications Medication Instructions Recorded Confirmed Last Taken Type Acetaminophen [Acetaminophen TAB] 650 mg PO Q4H PRN #30 tablet 03/01/18 Unknown Rx AtorvaSTATin [Lipitor] 40 mg PO QHS #30 tablet 03/01/18 03/02/18 Unknown Rx Clopidogrel [Plavix] 75 mg PO QDAY #30 tablet 03/01/18 03/02/18 Unknown Rx Labetalol [Normodyne TAB] 200 mg PO BID #60 tablet 03/01/18 03/02/18 Unknown Rx ED Review of Systems ROS: Stated complaint: CODE STROKE Other details as noted in HPI Comment: All other systems reviewed and negative Constitutional: denies: chills, fever Eyes: denies: eye pain, eye discharge, vision change ENT: denies: ear pain, throat pain Respiratory: denies: cough, shortness of breath, wheezing Cardiovascular: denies: chest pain, palpitations Gastrointestinal: denies: abdominal pain, nausea, diarrhea Genitourinary: denies: urgency, dysuria Musculoskeletal: denies: back pain, joint swelling, arthralgia Skin: denies: rash, lesions Neurological: weakness (continued from previous admission). denies: headache Physical Exam - Physical Exam Vital Signs: Vital Signs 03/01/18 19:45 Temperature 98.1 F Pulse Rate 67 Respiratory 20 Rate Blood Pressure 193/100 O2 Sat by Pulse 98 Oximetry Physical Exam: GENERAL: The patient is well-developed well-nourished. HENT: Normocephalic. Atraumatic. Patient has moist mucous membranes. EYES: Extraocular motions are intact. Pupils equal reactive to light bilaterally. NECK: Supple. Trachea is midline. CHEST/LUNGS: Clear to auscultation. There is no respiratory distress noted. HEART/CARDIOVASCULAR: Regular. There is no tachycardia. There is no murmur. ABDOMEN: Abdomen is soft, nontender. Patient has normal bowel sounds. There is no abdominal distention. SKIN: Skin is warm and dry. NEURO: The patient is awake, alert, and oriented. The patient is cooperative. Cranial nerves II through XII grossly intact. Patient has almost no movement of the left lower extremity. There is some movement of the left upper extremity but it is weak at 3 out of 5. MUSCULOSKELETAL: There is no tenderness or deformity. There is no evidence of acute injury. ED Course Vital Signs 03/01/18 19:45 Temperature 98.1 F Pulse Rate 67 Respiratory 20 Rate Blood Pressure 193/100 O2 Sat by Pulse 98 Oximetry ED Medical Decision Making - Lab Data Result diagrams: 03/01/18 20:26 - EKG Data -: EKG Interpreted by Ct EKG shows normal: sinus rhythm, axis (left axis deviation), intervals ( prolonged MS interval), QRS complexes (Q-wave to the septal leads, LVH), ST-T waves (nonspecific T waves) Rate: normal - EKG Data When compared to previous EKG there are: previous EKG unavailable Interpretation: other (sinus rhythm, left axis deviation, LVH, Q waves to the anterior leads) - Medical Decision Making This patient presented to the emergency department in late January and was found have a stroke causing left-sided deficits. He spent 4 days admitted to the hospital until he was cleared by medicine and neurology for discharge home. He was sent home with a prescription for Plavix, labetalol. The daughter made an attempt to bring the patient home to stay with her but they live in a third story apartment without an elevator and when the patient attempted to stand and assist in getting into the apartment he fell. At that time EMS was called and he was found to have elevated blood pressure, which he had during his previous admission as well. The patient was assessed immediately upon being in the emergency department and does not appear to have any new deficits. He does have the visible left-sided deficits that are consistent with the previous stroke. Since the patient had blood work done prior to discharge the morning of March 01, and I saw him that evening, I did not feel that there needed to be much more repeat blood work. I did see that he had some hypokalemia prior to discharge so this was repeated but the potassium level was only at 3.4, just below the normal range. Despite the patient saying that he fell, he denies hitting his head or having any new injuries or complaints. Patient did present with some elevated blood pressure but a responded to some IV hydralazine. The patient was then kept in the emergency department overnight so that he can be seen by case management to see if there is anything that be done regarding any rehabilitation or placement. I came back in this afternoon, March 02, and the patient is still in the emergency department. He was seen by case management and due to his lack of insurance there and fortunately does not appear to be any inpatient placement that can be done for rehabilitation or physical therapy. However the patient's daughter does not feel that she is able to care for him with her current living situation. The patient's sister drove him in [place] and is attempting to get the patient some benefits so that maybe he could get some Replacement in the near future. Prior to discharge the other day, patient was set up for home health care including home physical and occupational therapy. The issue right now is that there is no available inpatient placement for him and the family does not appear to be willing or feel that they are capable of taking care of him. Case management has contacted Adult Protective Services. In the meantime , until this is resolved, we will continue to monitor him in the emergency department. His blood pressure waxes and wanes but is at an appropriate level and he has been started on the medications that he was given for the discharge planning. He has been awake and alert and oriented. Otherwise vital signs are stable throughout his ED course. I have not found any further criteria that requires readmission to the medical floor. - Differential Diagnosis CVA, TIA, MS, Hypertensive crisis Critical Care Time: No Critical care attestation.: If time is entered above; I have spent that time in minutes in the direct care of this critically ill patient, excluding procedure time. ED Disposition Clinical Impression: Left-sided weakness CVA (cerebral vascular accident) Qualifiers: CVA mechanism: unspecified Qualified Code(s): I63.9 - Cerebral infarction, unspecified Hypertension Qualifiers: Hypertension type: unspecified Qualified Code(s): I10 - Essential (primary) hypertension Disposition: - TO HOME OR SELFCARE Is pt being admited?: No Condition: Stable Instructions: Hypertension (ED) Additional Instructions: Please make sure to take the blood pressure medication, Plavix and cholesterol medication that you were prescribed. Try and stay away from foods that are high in salt and caffeinated products to help with your blood pressure. Keep a blood pressure log. Return to the emergency department with any worsening of your symptoms, or with any acute distress. Referrals: AD PUGA JR, MD [Staff Physician] - 3-5 Days FLAQUITA HAYES MD [Staff Physician] - 3-5 Days [facility] [Outside] - 3-5 Days [facility] [Outside] - 3-5 Days Time of Disposition: 01:34
[2018-03-01] MEDS ORDERED: APRESOLINE IV ONE (20:17)
[2018-03-01 20:54] LABS: BUN/Creatinine Ratio 18; Blood Urea Nitrogen 14 mg/dL (9-20); Calcium 8.9 mg/dL (8.4-10.2); Hemolysis Index 1
[2018-03-01] MEDS ORDERED: K-DUR PO ONE (21:11)
[2018-03-01] MEDS ORDERED: TYLENOL PO ONE (23:41)
[2018-03-02] MEDS ORDERED: TYLENOL PO ONE (10:59)
[2018-03-02] MEDS ORDERED: APRESOLINE IV ONE (16:20)
[2018-03-02] MEDS: PLAVIX PO ONE ×2 (17:30→18:20)
[2018-03-02] MEDS ORDERED: NORMODYNE IV ONE (18:12)
[2018-03-02] MEDS ORDERED: TYLENOL ONE (18:42)
[2018-03-02] MEDS ORDERED: NORMODYNE PO SCH (22:00)
[2018-03-03] MEDS ORDERED: TYLENOL PO ONE ×2 (08:56→20:09)
[2018-03-03] MEDS: NORMODYNE PO SCH ×2 (09:50→20:36)
[2018-03-03] MEDS ORDERED: PLAVIX PO SCH ×2 (10:00→17:17)
[2018-03-04] MEDS: NORMODYNE PO SCH ×2 (09:40→23:05)
[2018-03-04] MEDS ORDERED: CATAPRES PO ONE (09:43)
[2018-03-05] MEDS: NORMODYNE PO SCH (08:16)
[2018-03-05] MEDS ORDERED: TYLENOL PO ONE (09:19)
[2018-03-06] MEDS: NORMODYNE PO SCH (01:16)
[2018-03-06] MEDS ORDERED: ZESTRIL PO ONE (01:17)
[2018-03-06] MEDS ORDERED: TYLENOL PO ONE ×2 (01:18→19:55)
[2018-03-06] MEDS ORDERED: CATAPRES PO ONE (01:18)
[2018-03-06] MEDS: ZESTRIL PO SCH (10:05)
[2018-03-06] MEDS: HCTZ PO SCH (10:05)
[2018-03-06] MEDS ORDERED: TYLENOL ONE (19:54)
[2018-03-07] MEDS: HCTZ PO SCH (09:24)
--- NOTE | 2018-03-07 21:41 | Emergency Department Report ---
Blank Doc - Documentation Documentation: I went to reevaluate the patient due to his prolonged ER stay. Vital signs are stable. Patient is well-appearing. He has no somatic complaints at this point in time. Cardiovascular exam shows no murmurs. Says gallops. Lungs are clear to auscultation bilaterally. Abdomen is benign.
[2018-03-08] MEDS ORDERED: TYLENOL PO ONE ×2 (02:13→10:48)
[2018-03-08] MEDS: HCTZ PO SCH (11:50)
[2018-03-08] MEDS: ZESTRIL PO SCH (11:51)
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
--- NOTE | 2018-03-08 16:33 | Emergency Department Report ---
Blank Doc - Documentation Documentation: The patient has been accepted to a personal senior care where he will be going today and transportation has been called. I have filled prescriptions for his Plavix, Lipitor, hydrochlorothiazide and lisinopril. Decision was made to avoid the labetalol as the patient tends to have a lower heart rate at baseline and I do not want to cause any significant bradycardia. He has been given referrals for neurology and primary care.
[2018-03-08 23:04] VITALS: BP 145/78
== END 2018-03-08 23:06 | disposition home or self-care (01) ==
LOC: ED 19:42
DX: I63.9 Cerebral infarction, unspecified (principal); I10 Essential (primary) hypertension
CPT/HCPCS: 36415; 71045; 80048; 93005; 93010; A9270; J0360; 96374; 96375; 96376

== ENCOUNTER 2018-03-21 12:21 | Emergency (ER) | payer OTHER ==
[2018-03-21] MEDS ORDERED: CATAPRES ONE (12:40)
[2018-03-21] MEDS ORDERED: CATAPRES PO ONE (12:45)
--- NOTE | 2018-03-21 13:21 | Emergency Department Report ---
ED General Adult HPI - General Chief complaint: High BP Stated complaint: HBP Time Seen by Provider: 03/21/18 13:10 Source: patient, EMS Mode of arrival: Wheelchair Limitations: Physical Limitation - History of Present Illness Initial comments: Patient said he was about to start his rehab to day when the nurse noticed his blood pressure was elevated and told him to go to the ER. Patient denies any medical problems currently. -: This morning Severity scale (0 -10): 0 Improves with: none Worsens with: none Associated Symptoms: denies other symptoms Treatments Prior to Arrival: none - Related Data Previous Rx's Medication Instructions Recorded Last Taken Type Acetaminophen [Acetaminophen TAB] 650 mg PO Q4H PRN #30 tablet 03/01/18 Unknown Rx AtorvaSTATin [Lipitor] 40 mg PO QHS #30 tablet 03/01/18 Unknown Rx Labetalol [Normodyne TAB] 200 mg PO BID #60 tablet 03/01/18 Unknown Rx AtorvaSTATin [Lipitor] 40 mg PO QHS #30 tablet 03/08/18 Unknown Rx Clopidogrel [Plavix] 75 mg PO QDAY #30 tablet 03/08/18 Unknown Rx Hydrochlorothiazide [HCTZ] 25 mg PO DAILY #30 tablet 03/08/18 Unknown Rx Lisinopril [Zestril TAB] 20 mg PO DAILY #30 tablet 03/08/18 Unknown Rx Clonidine HCl [Kapvay] 0.1 mg PO TID #60 tab.er.12h 03/21/18 Unknown Rx Allergies Allergy/AdvReac Type Severity Reaction Status Date / Time No Known Allergies Allergy Verified 02/25/18 11:47 ED Review of Systems ROS: Stated complaint: HBP Other details as noted in HPI Comment: All other systems reviewed and negative Constitutional: denies: chills, fever Eyes: denies: eye pain, eye discharge ENT: denies: ear pain, throat pain, dental pain Respiratory: denies: cough, shortness of breath Cardiovascular: denies: chest pain, palpitations, edema Endocrine: no symptoms reported Gastrointestinal: denies: abdominal pain, nausea Genitourinary: denies: dysuria, frequency Musculoskeletal: denies: back pain, joint swelling Neurological: denies: headache, weakness, numbness Psychiatric: denies: anxiety, depression Hematological/Lymphatic: denies: easy bleeding, easy bruising ED Past Medical Hx - Past Medical History Previous Medical History?: Yes Hx Hypertension: Yes Hx CVA: Yes (left sided deficits) Hx Congestive Heart Failure: No Hx Diabetes: No Hx Arthritis: Yes (gout) Hx COPD: No Hx HIV: No - Surgical History Past Surgical History?: Yes Additional Surgical History: hernia. skin grafts - Social History Smoking Status: Current Every Day Smoker Substance Use Type: Alcohol - Medications Home Medications: Home Medications Medication Instructions Recorded Confirmed Last Taken Type Acetaminophen [Acetaminophen TAB] 650 mg PO Q4H PRN #30 tablet 03/01/18 Unknown Rx AtorvaSTATin [Lipitor] 40 mg PO QHS #30 tablet 03/01/18 03/02/18 Unknown Rx Labetalol [Normodyne TAB] 200 mg PO BID #60 tablet 03/01/18 03/02/18 Unknown Rx AtorvaSTATin [Lipitor] 40 mg PO QHS #30 tablet 03/08/18 Unknown Rx Clopidogrel [Plavix] 75 mg PO QDAY #30 tablet 03/08/18 Unknown Rx Hydrochlorothiazide [HCTZ] 25 mg PO DAILY #30 tablet 03/08/18 Unknown Rx Lisinopril [Zestril TAB] 20 mg PO DAILY #30 tablet 03/08/18 Unknown Rx Clonidine HCl [Kapvay] 0.1 mg PO TID #60 tab.er.12h 03/21/18 Unknown Rx ED Physical Exam - General Limitations: Physical Limitation ED Course Vital Signs 03/21/18 03/21/18 12:26 12:48 Temperature 99 F Pulse Rate 68 68 Respiratory 20 Rate Blood Pressure 206/112 206/112 O2 Sat by Pulse 96 Oximetry ED Medical Decision Making - Lab Data Result diagrams: 03/21/18 13:05 03/21/18 13:05 - EKG Data -: EKG Interpreted by Al EKG shows normal: sinus rhythm Rate: normal (67) - EKG Data When compared to previous EKG there are: no significant change Interpretation: nonspecific ST-T wave tripp - Radiology Data Radiology results: report reviewed, image reviewed Critical care attestation.: If time is entered above; I have spent that time in minutes in the direct care of this critically ill patient, excluding procedure time. ED Disposition Clinical Impression: Hypokalemia, Hypomagnesemia Hypertension Qualifiers: Hypertension type: unspecified Qualified Code(s): I10 - Essential (primary) hypertension Disposition: DC/TX-70 ANOTHER TYPE HLTHCARE Is pt being admited?: No Does the pt Need Aspirin: No Condition: Stable Instructions: Hypertension (ED) Additional Instructions: Please follow up with your regular doctor tomorrow morning. Return to the ED if your condition worsens. Prescriptions: Clonidine HCl [Kapvay] 0.1 mg PO TID #60 tab.er.12h Referrals: PRIMARY CARE, [Primary Care Provider] - 3-5 Days Time of Disposition: 15:02
[2018-03-21 13:27] LABS: INR 0.92 (0.87-1.13)
[2018-03-21 13:28] LABS: Partial Thromboplastin Time 26.7 Sec. (24.2-36.6)
[2018-03-21 13:29] LABS: Basophils % (Auto) 0.7 % (0.0-1.8); Eosinophils # (Auto) 0.2 K/mm3 (0.0-0.4); Eosinophils % (Auto) 2.6 % (0.0-4.3); Hematocrit 42.7 % (35.5-45.6); Hemoglobin 14.2 gm/dl (11.8-15.2); Lymphocytes # (Auto) 1.9 K/mm3 (1.2-5.4); Lymphocytes % (Auto) 27.4 % (13.4-35.0); Mean Corpuscular HGB Conc 33 % (32-34); Mean Corpuscular Hemoglobin 30 pg (28-32); Mean Corpuscular Volume 90 fl (84-94); Monocytes # (Auto) 0.6 K/mm3 (0.0-0.8); Monocytes % (Auto) 8.2 % (0.0-7.3); Platelet Count 278 K/mm3 (140-440); Red Blood Count 4.74 M/mm3 (3.65-5.03)
[2018-03-21 13:39] LABS: BUN/Creatinine Ratio 16; Blood Urea Nitrogen 13 mg/dL (9-20); Calcium 9.5 mg/dL (8.4-10.2); Hemolysis Index 6
[2018-03-21] MEDS ORDERED: K-DUR PO ONE (13:49)
--- NOTE | 2018-03-21 14:23 | Cat Scan Report ---
CT HEAD WITHOUT CONTRAST: HISTORY: Headache with hypertension. TECHNIQUE: Sequential 2.5mm CT images. COMPARISON: 02/27/18. FINDINGS: Cerebral Parenchyma: Chronic lacunar infarcts in both basal ganglia, right frontal white matter and bilateral haroldo are unchanged since the previous exam. No new areas of diminished attenuation of developed. Cerebellum: Within normal limits. Ventricles: Normal. Sella: Normal. Extra-axial spaces: Normal. Basal Cisterns: Normal. Intracranial Hemorrhage: None. Midline Shift: None. Calvarium: Normal. Sinuses: Normal. Mastoid Air Cells: Normal. Visualized Orbits: Normal. IMPRESSION: No acute intracranial process. Chronic focal infarcts which are unchanged since 02/27/18.
[2018-03-21] MEDS ORDERED: MAGNESIUM SULFATE 2GM/50ML 2 GM/50 ML BAG IV ONE (14:54)
[2018-03-21] MEDS ORDERED: MAGNESIUM SULFATE 2 GM in NACL 0.9% 50 ML IV ONE (16:00)
[2018-03-21] MEDS ORDERED: TYLENOL ONE (16:24)
[2018-03-21 18:30] VITALS: BP 153/89
== END 2018-03-21 20:05 | disposition other institution (70) ==
LOC: ED 12:21
DX: E87.6 Hypokalemia (principal); E83.42 Hypomagnesemia; R51 Headache; I10 Essential (primary) hypertension; M19.90 Unspecified osteoarthritis, unspecified site; F17.200 Nicotine dependence, unspecified, uncomplicated; Z86.73 Personal history of transient ischemic attack (TIA), and cerebral infarction without residual deficits
CPT/HCPCS: 36415; 70450; 80048; 83735; 84484; 85025; 85610; 85670; 85730; 93005; 93010; 96365; 99284; J3475

== ENCOUNTER 2019-11-20 16:27 | Emergency (ER) | payer MEDICAID ==
[2019-11-20] MEDS ORDERED: METOCLOPRAMIDE 10 MG TAB PO ONE (17:07)
--- NOTE | 2019-11-20 17:08 | Emergency Department Report ---
ED General Adult HPI - General Chief complaint: Weakness Stated complaint: GENERAL WEAKNESS Time Seen by Provider: 11/20/19 16:45 Source: patient, EMS ( EMS documentation not available at time of chart dictation ), RN notes reviewed, old records reviewed Mode of arrival: Stretcher Limitations: No Limitations - History of Present Illness Initial comments: This is a 59-year-old gentleman. I have evaluated him in the past. He was recently admitted to this hospital. His past medical history includes hypertension, stroke, high cholesterol, head MRI of the brain performed and 2018, suggesting a pontine infarct. He had an MRA of the head which was unremarkable, and carotid duplex study which was also duplex study which was unremarkable. He had a cardiac stress test within the past month, which was unremarkable. He lives at home with other people, and typically walks with a cane, and also has a wheelchair, which he sporadically uses. He presents to the ER today with a complaint of generalized weakness. Today he was walking without his wheelchair, without his cane, and he felt his legs get weak. He did not hit his head. He denied physical pain. He denies fever, cough, urinary symptoms, chest pain, and abdominal pain. He endorses com pliance with his medications. He does not have positive contacts with a coronavirus that he is aware of. At the moment, denies headache, neck pain, chest pain, abdominal pain, shortness of breath, focal extremity weakness and numbness, and urinary symptoms. -: Gradual Consistency: intermittent Improves with: rest Worsens with: movement - Related Data Home Medications Medication Instructions Recorded Confirmed Last Taken Clopidogrel [Plavix] 75 mg PO QDAY 11/03/19 11/03/19 Unknown amLODIPine 10 mg PO QDAY 11/03/19 11/03/19 Unknown cloNIDine [Catapres] 0.2 mg PO TID 11/03/19 11/03/19 Unknown hydroCHLOROthiazide [HCTZ] 25 mg PO QAM 11/03/19 11/03/19 Unknown lisinopriL [Zestril TAB] 40 mg PO QDAY 11/03/19 11/03/19 Unknown metFORMIN [Glucophage] 500 mg PO BID 11/03/19 11/03/19 Unknown Previous Rx's Medication Instructions Recorded Last Taken Type AtorvaSTATin [Lipitor] 40 mg PO QHS tablet 11/05/19 Unknown Rx Clopidogrel [Plavix] 75 mg PO QDAY tablet 11/05/19 Unknown Rx hydroCHLOROthiazide [HCTZ] 25 mg PO DAILY tablet 11/05/19 Unknown Rx labetaloL [Labetalol 200mg TAB] 200 mg PO BID tablet 11/05/19 Unknown Rx Magnesium Oxide,Aspartate,Citr 400 mg PO QDAY #30 capsule 11/20/19 Unknown Rx [Triple Magnesium Complex] Multivitamin with Folic Acid [[facility] 400 mcg PO QDAY #30 tablet 11/20/19 Unknown Rx One Daily Essential Tablet] Potassium Chloride 20 meq PO QDAY #30 packet 11/20/19 Unknown Rx Allergies Allergy/AdvReac Type Severity Reaction Status Date / Time No Known Allergies Allergy Verified 11/20/19 16:47 ED Review of Systems ROS: Stated complaint: GENERAL WEAKNESS Other details as noted in HPI Constitutional: malaise, weakness. denies: fever Eyes: denies: eye discharge ENT: denies: congestion Respiratory: denies: cough Cardiovascular: denies: syncope Gastrointestinal: denies: abdominal pain Genitourinary: denies: dysuria Musculoskeletal: as per HPI Skin: as per HPI Neurological: as per HPI, weakness. denies: numbness, paresthesias Psychiatric: as per HPI Hematological/Lymphatic: as per HPI. denies: easy bleeding ED Past Medical Hx - Past Medical History Previous Medical History?: Yes Hx Hypertension: Yes Hx CVA: Yes (left sided deficits) Hx Congestive Heart Failure: No Hx Diabetes: Yes (pre diabetic as per pt) Hx Arthritis: Yes (gout) Hx Asthma: No Hx COPD: No Hx HIV: No - Surgical History Additional Surgical History: hernia. skin grafts - Social History Smoking Status: Current Every Day Smoker - Medications Home Medications: Home Medications Medication Instructions Recorded Confirmed Last Taken Type Clopidogrel [Plavix] 75 mg PO QDAY 11/03/19 11/03/19 Unknown History amLODIPine 10 mg PO QDAY 11/03/19 11/03/19 Unknown History cloNIDine [Catapres] 0.2 mg PO TID 11/03/19 11/03/19 Unknown History hydroCHLOROthiazide [HCTZ] 25 mg PO QAM 11/03/19 11/03/19 Unknown History lisinopriL [Zestril TAB] 40 mg PO QDAY 11/03/19 11/03/19 Unknown History metFORMIN [Glucophage] 500 mg PO BID 11/03/19 11/03/19 Unknown History AtorvaSTATin [Lipitor] 40 mg PO QHS tablet 11/05/19 Unknown Rx Clopidogrel [Plavix] 75 mg PO QDAY tablet 11/05/19 Unknown Rx hydroCHLOROthiazide [HCTZ] 25 mg PO DAILY tablet 11/05/19 Unknown Rx labetaloL [Labetalol 200mg TAB] 200 mg PO BID tablet 11/05/19 Unknown Rx Magnesium Oxide,Aspartate,Citr 400 mg PO QDAY #30 capsule 11/20/19 Unknown Rx [Triple Magnesium Complex] Multivitamin with Folic Acid [[facility] 400 mcg PO QDAY #30 tablet 11/20/19 Unknown Rx One Daily Essential Tablet] Potassium Chloride 20 meq PO QDAY #30 packet 11/20/19 Unknown Rx ED Physical Exam - General Limitations: Physical Limitation (The patient is able to walk with a cane and a 1 person assist) General appearance: alert, in no apparent distress - Head Head exam: Present: atraumatic, normocephalic - Eye Eye exam: Present: normal appearance, EOMI, other (Visual acuity is intact to finger counting and color perception at a close distance). Absent: nystagmus - ENT ENT exam: Present: normal exam, normal orophraynx, mucous membranes moist, normal external ear exam - Neck Neck exam: Present: normal inspection, full ROM. Absent: tenderness, meningismus - Respiratory Respiratory exam: Present: normal lung sounds bilaterally. Absent: respiratory distress - Cardiovascular Cardiovascular Exam: Present: normal rhythm, bradycardia, normal heart sounds. Absent: tachycardia, irregular rhythm, systolic murmur, diastolic murmur, rubs, gallop - GI/Abdominal GI/Abdominal exam: Present: soft. Absent: distended, tenderness, guarding, rebound, rigid, pulsatile mass - Rectal Rectal exam: Present: deferred - Extremities Exam Extremities exam: Present: normal inspection, full ROM, other (2+ pulses noted in the bilateral upper and lower extremities. There is no palpable cord. negative Homans sign. Muscular compartments are soft. The pelvis is stable.). Absent: pedal edema, calf tenderness - Back Exam Back exam: Present: normal inspection, full ROM. Absent: tenderness, CVA tenderness (R), paraspinal tenderness, vertebral tenderness - Neurological Exam Neurological exam: Present: alert, oriented X3, other (There is no facial droop. The tongue is midline. The extraocular movements are intact bilaterally. There is 5 out of 5 strength bilateral upper extremities, 5 out of 5 strength bilateral lower extremities, with sensation intact to light touch in 4 extremities. There is no pronator drift. There is no past-pointing. Patient not able to tolerate [id number]) - Psychiatric Psychiatric exam: Present: normal affect, normal mood - Skin Skin exam: Present: warm, dry, intact, normal color. Absent: rash ED Course Vital Signs 11/20/19 11/20/19 11/20/19 16:45 17:14 17:15 Temperature 98.6 F 98.4 F Pulse Rate 56 L 50 L 49 L Respiratory 16 16 16 Rate Blood Pressure 147/75 148/76 Blood Pressure 161/85 [Left] O2 Sat by Pulse 96 100 94 Oximetry 11/20/19 11/20/19 17:30 17:46 Temperature Pulse Rate 48 L 50 L Respiratory 16 17 Rate Blood Pressure 149/78 155/82 Blood Pressure [Left] O2 Sat by Pulse 98 98 Oximetry - Reevaluation(s) Reevaluation #1: 11/20/19 19:03 Differential diagnosis, including but not limited to: Deconditioning, pneumonia, urinary tract infection, electrolyte derangement migraine headache, tension headache, cluster headache, intracranial lesion Assessment and plan: 59-year-old gentleman with a nonfocal motor and neurologic examination, alert and oriented x3, clinically sober, with a GCS of 15, recently had a cardiac risk ratification at this hospital, presenting with generalized weakness, in the context of not walking with his cane, or using a wheelchair which she has at home. This patient is able to walk with a 1 person assist and his cane. His physical examination is unremarkable. His vital signs are unremarkable. We will treat his symptoms, obtain screening laboratory studies and reassess. Also complained of mild headache which is frontal, present for weeks and months, not sudden or thunderclap in nature, not maximal in intensity, and not described as the worst headache of his life. He has had multiple negative CAT scans of the brain in the past for acute findings. Reevaluation #2: 11/20/19 19:58 X-ray of the chest is negative for acute disease. CT scan of the brain is negative for acute disease. Reevaluation #3: 11/20/19 20:48 Patient resting comfortably for hours without clinical decompensation. Vital signs remained stable. Laboratory studies fairly unremarkable with the exception of minimal hypokalemia, and minimal hypomagnesemia. Patient will be given oral repletion here in the emergency room, and he can follow-up with an outpatient with outpatient prescriptions. A case management consultation was placed. ED Medical Decision Making - Lab Data Result diagrams: 11/20/19 19:02 11/20/19 19:02 Vital Signs 11/20/19 11/20/19 11/20/19 16:45 17:14 17:15 Temperature 98.6 F 98.4 F Pulse Rate 56 L 50 L 49 L Respiratory 16 16 16 Rate Blood Pressure 147/75 148/76 Blood Pressure 161/85 [Left] O2 Sat by Pulse 96 100 94 Oximetry 11/20/19 11/20/19 17:30 17:46 Temperature Pulse Rate 48 L 50 L Respiratory 16 17 Rate Blood Pressure 149/78 155/82 Blood Pressure [Left] O2 Sat by Pulse 98 98 Oximetry Labs 11/20/19 17:45 Urine Color Yellow Urine Turbidity Clear Urine pH 7.0 Ur Specific [place] 1.019 Urine Protein 30 mg/dl Urine Glucose (UA) Neg Urine Ketones 20 Urine Blood Neg Urine Nitrite Neg Urine Bilirubin Neg Urine Urobilinogen 2.0 Ur Leukocyte Esterase Sm Urine WBC (Auto) < 1.0 Urine RBC (Auto) < 1.0 - EKG Data -: EKG Interpreted by N[place] - EKG Data When compared to previous EKG there are: no significant change 11/20/19 19:05 Sinus rhythm, bradycardia, 58 bpm, left axis deviation, left anterior fascicular block, first-degree AV block, left ventricular hypertrophy, T wave abnormalities in the lateral leads, the EKG is abnormal, it appears to be unchanged from prior EKG, it is not a STEMI - Radiology Data Radiology results: report reviewed, image reviewed Print Report Referring Physician: EMIR ARZOLA Patient Name: SHIRLEY HANSEN Date of : 1960 Sex: Male Report Date: 2019-11-20 Report Status: Finalized Findings [facility] [address] [place] [address] XRay Report Signed Patient: SHIRLEY HANSEN MR#: [id number] : 1960 Acct:[id number] Age/Sex: 59 / M ADM Date: 11/20/19 Loc: ED Attending Dr: Ordering Physician: EMIR ARZOLA MD Date of Service: 11/20/19 Procedure(s): XR chest 1V ap Accession Number(s): [id number] cc: EMIR ARZOLA MD Fluoro Time In Minutes: CHEST 1 VIEW 11/20/2019 4:50 PM INDICATION / CLINICAL INFORMATION: falls weakness. COMPARISON: Chest x-ray on 11/03/2019. FINDINGS: SUPPORT DEVICES: None. HEART / MEDIASTINUM: Normal heart size. Atherosclerosis in the thoracic aorta. LUNGS / PLEURA: No significant pulmonary or pleural abnormality. No pneumothorax. ADDITIONAL FINDINGS: No significant additional findings. IMPRESSION: 1. No acute findings. Signer Name: Omar Betts MD Signed: 11/20/2019 5:53 PM Workstation Name: [id number] Transcribed By: HONORIO Dictated By: Omar Betts MD Electronically Authenticated By: Omar Betts MD Signed Date/Time: 11/20/191752 DD/ 52 TD/TT: Critical care attestation.: If time is entered above; I have spent that time in minutes in the direct care of this critically ill patient, excluding procedure time. ED Disposition Clinical Impression: History of headache, History of fall, Hypokalemia, Hypomagnesemia Disposition: DC-01 TO HOME OR SELFCARE Is pt being admited?: No Does the pt Need Aspirin: No Condition: Stable Additional Instructions: Please continue current outpatient medications. Follow-up with your primary care doctor within 2 weeks. Cultures were sent today, and results will be available in the next 3 to 5 days. Please have your primary care doctor contact the medical records department to obtain culture results. Patient should use a wheelchair when transporting himself, or walk with a cane or walker, with at least one person assisting him. Please return to the emergency room right away with new, worsened or different symptoms, or symptoms not present on the initial emergency room evaluation. Take the multivitamin, potassium and magnesium supplementation as directed. Prescriptions: Multivitamin with Folic Acid [[facility]vs One Daily Essential Tablet] 400 mcg PO QDAY #30 tablet Potassium Chloride 20 meq PO QDAY #30 packet Magnesium Oxide,Aspartate,Citr [Triple Magnesium Complex] 400 mg PO QDAY #30 capsule Referrals: RUDY LARKIN MD [Referring] - 3-5 Days MEGHAN AVILA MD [Referring] - 3-5 Days
--- NOTE | 2019-11-20 17:57 | XRay Report ---
CHEST 1 VIEW 11/20/2019 4:50 PM INDICATION / CLINICAL INFORMATION: falls weakness. COMPARISON: Chest x-ray on 11/03/2019. FINDINGS: SUPPORT DEVICES: None. HEART / MEDIASTINUM: Normal heart size. Atherosclerosis in the thoracic aorta. LUNGS / PLEURA: No significant pulmonary or pleural abnormality. No pneumothorax. ADDITIONAL FINDINGS: No significant additional findings. IMPRESSION: 1. No acute findings. Signer Name: Omar Betts MD Signed: 11/20/2019 5:53 PM Workstation Name: [id number]
[2019-11-20 18:13] LABS: Bilirubin,Urine NEG (Negative); Blood,Urine NEG (Negative); Color,Urine Yellow (Yellow)
[2019-11-20 18:14] LABS: RBC,Urine < 1.0 /HPF (0.0-6.0); WBC,Urine < 1.0 /HPF (0.0-6.0)
--- NOTE | 2019-11-20 19:09 | Cat Scan Report ---
NONENHANCED CT SCAN OF THE HEAD: INDICATION / CLINICAL INFORMATION: 59 years Male; headache falls weakness. TECHNIQUE: Routine CT head without contrast. All CT scans at this location are performed using CT dos e reduction for ALARA by means of automated exposure control. COMPARISON: CT scan of the head from 11/03/2019 FINDINGS: BRAIN / INTRACRANIAL CONTENTS: No acute hemorrhage, mass effect, midline shift, hydrocephalus, or ac kenaitze, large territorial infarct. Chronic ischemic lesions seen in the right side of haroldo. This remains unchanged. Chronic ischemic changes are seen in the corpus stratum bilaterally, basal ganglia bilate rally, right frontal lobe white matter. These remain unchanged. Confluent periventricular white matte r low-attenuation areas seen due to chronic small vessel disease. High convexity cortical sulci are n ormal. CRANIOCERVICAL JUNCTION: No significant abnormality. ORBITS: No significant abnormality of visualized orbits. SINUSES / MASTOIDS: No significant abnormality of the visualized paranasal sinuses or mastoid air angelica ls. ADDITIONAL FINDINGS: Focal area of scalp thickening in the left posterior parietal region remains unc hanged. IMPRESSION: No acute parenchymal lesion CT findings remain unchanged. Signer Name: Edu De La O MD Signed: 11/20/2019 7:04 PM Workstation Name: [id number]
[2019-11-20 19:56] LABS: Hematocrit 39.8 % (35.5-45.6); Hemoglobin 12.9 gm/dl (11.8-15.2); Mean Corpuscular HGB Conc 32 % (32-34); Mean Corpuscular Volume 87 fl (84-94); Platelet Count 244 K/mm3 (140-440); Red Blood Count 4.58 M/mm3 (3.65-5.03); Red Cell Distribution Width 15.1 % (13.2-15.2)
[2019-11-20 20:07] LABS: INR 1.02 (0.87-1.13)
[2019-11-20 20:18] LABS: Alanine Aminotransferase 6 units/L (7-56); BUN/Creatinine Ratio 16; Blood Urea Nitrogen 13 mg/dL (9-20); Calcium 9.8 mg/dL (8.4-10.2); Hemolysis Index 2
[2019-11-20] MEDS ORDERED: POTASSIUM CHLORIDE ER 20 MEQ TAB PO ONE ×2 (20:40→22:56)
[2019-11-20] MEDS ORDERED: MAGNESIUM OXIDE 400 MG TAB PO STA (20:40)
[2019-11-21 00:14] VITALS: BP 146/77
== END 2019-11-20 23:15 | disposition home or self-care (01) ==
LOC: ED 16:27
DX: E87.6 Hypokalemia (principal); E83.42 Hypomagnesemia; R51 Headache; I10 Essential (primary) hypertension; Z86.73 Personal history of transient ischemic attack (TIA), and cerebral infarction without residual deficits
CPT/HCPCS: 36415; 70450; 71045; 80053; 81001; 82550; 83735; 84443; 84484; 85027; 85610; 87086; 93005; 93010; 99284